=== PATIENT | male | born 2000 | race African-American/Black ===

== ENCOUNTER 2020-03-20 00:41 | Emergency (ER) | payer OTHER ==
[~2020-03-20] VITALS: Ht 177.8 cm; Wt 79.4 kg
[2020-03-20 00:50] VITALS: BP 140/90
--- NOTE | 2020-03-20 00:50 | NUR ---
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
[2020-03-20] MEDS ORDERED: FLUORESCEIN SODIUM OPHTH 1 EA STRIP ONE (01:09)
--- NOTE | 2020-03-20 01:40 | NUR ---
Patient discharged to home in stable condition. Written and verbal after care instructions given. Patient verbalizes understanding of instruction.
== END 2020-03-20 01:40 | disposition home or self-care (01) ==
LOC: ER 00:43
DX: T15.12XA Foreign body in conjunctival sac, left eye, initial encounter (principal); X58.XXXA Exposure to other specified factors, initial encounter; Y93.01 Activity, walking, marching and hiking; Y92.89 Other specified places as the place of occurrence of the external cause; Y99.8 Other external cause status

== ENCOUNTER 2022-05-11 12:06 | Emergency (ER) | payer OTHER ==
[~2022-05-11] VITALS: Ht 175.3 cm; Wt 81.6 kg
[2022-05-11 12:12] VITALS: BP 139/82
--- NOTE | 2022-05-11 13:10 | NUR ---
Patient discharged to home in stable condition. Written and verbal after care instructions given. Patient verbalizes understanding of instruction.
== END 2022-05-11 13:10 | disposition home or self-care (01) ==
LOC: ER 12:08
DX: Z00.00 Encounter for general adult medical examination without abnormal findings (principal)